=== PATIENT | female | born 1955 | race Caucasian/White ===

== ENCOUNTER → 2019-01-06 | Outpatient (CLI) | payer OTHER ==
[~2019-01-06] MED LIST: ALBU90OI61 INH; ATOR40TA PO; FLUC200 PO; FLUO10 PO; Flonase 0.05% N16 GM; HYDCHL25 PO; PANT40 PO; RANI150 PO; Solaraze100 GM TOP; TIMOPTIC 0.5%1 EACH BOTHEYES; TIOT18 INH; Voltaren100 GM TOP; Xalatan2.5 ML BOTHEYES
== END ==
LOC: PLD 11:31 → LAB SHORT 11:31
DX: L57.0 Actinic keratosis (principal); L85.8 Other specified epidermal thickening; R23.4 Changes in skin texture; L08.89 Other specified local infections of the skin and subcutaneous tissue; R60.0 Localized edema
CPT/HCPCS: 88305

== ENCOUNTER → 2019-02-22 | Outpatient (CLI) | payer OTHER ==
[2019-02-22 12:45] LABS: Stool Occult Bld Immuno 1 Negative (NEGATIVE)
== END | disposition home or self-care (01) ==
LOC: LAB SHORT 07:25 → LAB 07:25 → LAB FUT 02-18 09:10
PROVIDERS: Internal Medicine
DX: Z12.11 Encounter for screening for malignant neoplasm of colon (principal)
CPT/HCPCS: G0328

== ENCOUNTER → 2020-04-12 | Outpatient (CLI) | payer OTHER ==
[2020-04-12 12:01] LABS: Creatinine Urine 70.5 mg/dL (27.00-270.00); Microalbumin, Urine Quant. 31.1 mg/L (0.000-20.000); Protein, Urine Quantitative 12.7 mg/dL (0.0-11.9)
== END | disposition home or self-care (01) ==
LOC: LAB 08:00 → LAB SHORT 08:00 → LAB FUT 04-10 10:00
PROVIDERS: Internal Medicine Nephrology
DX: N18.30 Chronic kidney disease, stage 3 unspecified (principal); D63.1 Anemia in chronic kidney disease; N25.81 Secondary hyperparathyroidism of renal origin; E55.9 Vitamin D deficiency, unspecified; E78.00 Pure hypercholesterolemia, unspecified; R76.9 Abnormal immunological finding in serum, unspecified; R94.5 Abnormal results of liver function studies; R94.6 Abnormal results of thyroid function studies
CPT/HCPCS: 81050; 82043; 82570; 84156

== ENCOUNTER → 2022-08-15 | Outpatient (CLI) | payer OTHER ==
[2022-08-16 13:09] LABS: Adenovirus F 40/41 Not Detected (NOT DETECT); Astrovirus Not Detected (NOT DETECT); Campylobacter Sp Not Detected (NOT DETECT); Cryptosporidium Not Detected (NOT DETECT); Cyclospora Cayetanensis Not Detected (NOT DETECT); E. Coli O157 Not Detected (NOT DETECT); Entamoeba Histolytica Not Detected (NOT DETECT); Enteroaggregative E. coli-EAEC Not Detected (NOT DETECT); Enteropathogenic E. coli-EPEC Not Detected (NOT DETECT); Enterotoxigenic E. coli-ETEC Not Detected (NOT DETECT); Giardia Lamblia Not Detected (NOT DETECT); Norovirus GI/GII Not Detected (NOT DETECT); Plesiomonas Shigelloides Not Detected (NOT DETECT); Rotavirus A Not Detected (NOT DETECT); Salmonella Sp Not Detected (NOT DETECT); Sapovirus Not Detected (NOT DETECT); Shiga Toxin-prod E. coli-STEC Not Detected (NOT DETECT); Shigella/Enteroin E. coli-EIEC Not Detected (NOT DETECT); Vibrio Cholerae Not Detected (NOT DETECT); Vibrio Sp Not Detected (NOT DETECT); Yersinia Enterocolitica Not Detected (NOT DETECT)
== END | disposition home or self-care (01) ==
LOC: LAB SHORT 09:31 → LAB 09:31
PROVIDERS: Physician Assistant Medical
DX: R19.7 Diarrhea, unspecified (principal)
CPT/HCPCS: 87507

== ENCOUNTER 2022-08-31 07:23 | Emergency (ER) | payer OTHER ==
[~2022-08-31] VITALS: Ht 154.9 cm; Wt 69.8 kg
[2022-08-31 07:37] VITALS: BP 168/81
== END 2022-08-31 08:32 | disposition home or self-care (01) ==
LOC: ER 07:23
DX: L03.116 Cellulitis of left lower limb (principal); L01.00 Impetigo, unspecified; S80.212S Abrasion, left knee, sequela; I10 Essential (primary) hypertension; E78.5 Hyperlipidemia, unspecified; Z88.6 Allergy status to analgesic agent; Z88.5 Allergy status to narcotic agent; Z88.8 Allergy status to other drugs, medicaments and biological substances; Z79.899 Other long term (current) drug therapy; Z87.891 Personal history of nicotine dependence
CPT/HCPCS: 99283; A9270

== ENCOUNTER → 2023-05-16 | Outpatient (CLI) | payer OTHER ==
[2023-05-20 16:20] LABS: ALPHA-1 %,URINE 6.4 %; ALPHA-2 %,URINE 8.5 %; BETA GLOBULIN %,URINE 11.2 %; GAMMA GLOBULIN %,URINE 7.9 %; HOURS COLLECTED 24 hr; TOTAL PROTEIN,URINE-PER VOLUME 10 mg/dL; TOTAL VOLUME 1000 mL; URINE 24 HOUR PROTEIN 100 mg/d (40-150)
== END | disposition home or self-care (01) ==
LOC: LAB SHORT 07:50 → LAB 07:50 → LAB FUT 03-24 13:50
PROVIDERS: Internal Medicine
DX: E78.89 Other lipoprotein metabolism disorders (principal)
CPT/HCPCS: 81050

== ENCOUNTER → 2025-01-19 | Outpatient (CLI) | payer OTHER ==
[2025-01-24 00:47] LABS: ALBUMIN %,URINE 34.8 %; ALPHA-1 %,URINE 4.6 %; ALPHA-2 %,URINE 4.9 %; BETA GLOBULIN %,URINE 1.4 %; GAMMA GLOBULIN %,URINE 54.3 %; HOURS COLLECTED Random hr; PARAPROTEIN %,URINE 0.0 %
== END ==
LOC: LAB 13:01 → LAB SHORT 13:01 → LAB FUT 01-18 08:40
PROVIDERS: Internal Medicine Nephrology
DX: N18.30 Chronic kidney disease, stage 3 unspecified (principal); D63.1 Anemia in chronic kidney disease; N25.81 Secondary hyperparathyroidism of renal origin; E55.9 Vitamin D deficiency, unspecified; E78.00 Pure hypercholesterolemia, unspecified; R76.9 Abnormal immunological finding in serum, unspecified; R94.5 Abnormal results of liver function studies; R94.6 Abnormal results of thyroid function studies; D51.8 Other vitamin B12 deficiency anemias; D50.9 Iron deficiency anemia, unspecified
CPT/HCPCS: 84156; 84166; 86335